=== PATIENT | male | born 1965 | race Caucasian/White ===

== ENCOUNTER 2020-04-10 09:27 | Day surgery (SDC) | payer BC ==
[~2020-04-10] VITALS: Ht 177.8 cm; Wt 94.8 kg
[2020-04-10] VITALS (10 sets, daily range): BP systolic 126–158; BP diastolic 74–96
[~2020-04-10 09:27] MED LIST: ceFAZolin sod 1 GM in NS 55 ML IVPB ONE
[2020-04-10] MEDS ORDERED: Betadine 10% Oint 30gm TOPIC ONE (11:47)
[2020-04-10] MEDS ORDERED: Kenalog-40 1ml Vial ONE (11:47)
[2020-04-10] MEDS ORDERED: Lidocaine 1%/ 10mg/ml/EPI 0.01mg/ml 20ml INJ ONE (11:48)
[2020-04-10] MEDS ORDERED: Oxymetazoline 0.05% Na Spray 30ml NASAL ONE (11:48)
[2020-04-10] MEDS ORDERED: Cocaine HCl 4% 4ml vial TOPIC ONE (12:12)
[2020-04-10] MEDS ORDERED: Lidocaine 1% Plain 30 ml INJ ONE ×2 (12:13→14:26)
--- NOTE | 2020-04-10 12:14 | Pre-Procedure Note/Attestation ---
Pre-Procedure Note/Attestation Complete Prior to Procedure Planned Procedure: not applicable Procedure Narrative: nasal obstruction unresponsive to medication Indications for Procedure Pre-Operative Diagnosis: septal deviation, bilateral hypertrophied inferior turbinates Attestation I attest that I discussed the nature of the procedure; its benefits; risks and complications; and alternatives (and the risks and benefits of such alternatives), prior to the procedure, with the patient (or the patient's legal apprenticeship training representative). I attest that, if there was a reasonable possibility of needing a blood transfusion, the patient (or the patient's legal apprenticeship training representative) was given the [facility] standardized written summary, pursuant to the [place] Blood Safety Act ([place] Health and Safety Code # 1645, as amended). I attest that I re-evaluated the patient just prior to the surgery and that there has been no change in the patient's H&P, except as documented below: Patrick Mcintyre MD Apr 10, 2020 12:14
--- NOTE | 2020-04-10 12:20 | Anethesia Preoperative Eval ---
Anesthesia Pre-op PMH/ROS General Date of Evaluation: Apr 10, 2020 Time of Evaluation: 12:37 Anesthesiologist: Jacques ASA Score: ASA 1 Mallampati Score Class I : Soft palate, uvula, fauces, pillars visible Class II: Soft palate, uvula, fauces visible Class III: Soft palate, base of uvula visible Class IV: Only hard plate visible Mallampati Classification: Class I Surgeon: Miguelina Diagnosis: Nasal Deformity Surgical Procedure: Septoplasty, Bilateral SMR Tubinates Anesthesia History: none Family History: no anesthesia problems Allergies: Coded Allergies: No Known Allergies (Unverified , 04/07/20) Medications: see eMAR Patient NPO?: Yes Anesthesia Pre-op Phys. Exam Physician Exam Last Vital Signs Date Time Temp Pulse Resp B/P (MAP) Pulse Ox O2 Delivery O2 Flow Rate FiO2 04/10/20 10:04 Room Air 04/10/20 10:04 98.0 59 18 126/86 96 Constitutional: NAD Neurologic: CN 2-12 intact Cardiovascular: RRR Respiratory: CTA Gastrointestinal: S/NT/ND Airway Exam Mallampati Score: Class I MO: full ROM: full Teeth: intact Anesthesia Pre-op A/P Risk Assessment & Plan Assessment: ASA 1 Plan: TIVA, SED, GlideScope Status Change Before Surgery: No Pre-Antibiotics Dru Grams Ancef IV Given Within 1 Hr of Incision: Yes Time Given: 13:01 Franky Hanna MD Apr 10, 2020 12:20
--- NOTE | 2020-04-10 12:21 | Immediate Post-Op Evaluation ---
Immediate Post-Op Evalulation Immediate Post-Op Evalulation Procedure: Septoplasty, Bilateral SMR Tubinates Date of Evaluation: Apr 10, 2020 Time of Evaluation: 15:18 IV Fluids: 800 LR Blood Products: 0 Estimated Blood Loss: 20 Urinary Output: 0 Blood Pressure Systolic: 152 Blood Pressure Diastolic: 90 Pulse Rate: 69 Respiratory Rate: 16 O2 Sat by Pulse Oximetry: 100 Temperature (Fahrenheit): 97 Pain Score (1-10): 2 Nausea: No Vomiting: No Complications 0 Patient Status: awake, reacts, patent, extubated, none Hydration Status: adequate Dru Grams Ancef IV Given Within 1 Hr of Incision: Yes Time Given: 13:01 Franky Hanna MD Apr 10, 2020 12:20
--- NOTE | 2020-04-10 12:21 | 48 Hour Post Anesthesia Eval ---
Post Anesthesia Evaluation Procedure: Septoplasty, Bilateral SMR Tubinates Date of Evaluation: Apr 10, 2020 Time of Evaluation: 17:23 Blood Pressure Systolic: 131 0: 83 Pulse Rate: 73 Respiratory Rate: 18 Temperature (Fahrenheit): 98 O2 Sat by Pulse Oximetry: 99 Airway: patent Nausea: No Vomiting: No Pain Intensity: 2 Hydration Status: adequate Cardiopulmonary Status: Stable Mental Status/LOC: patient returned to baseline Follow-up Care/Observations: 0 Post-Anesthesia Complications: 0 Follow-up care needed: ready to discharge Franky Hanna MD Apr 10, 2020 12:21
[2020-04-10] MEDS ORDERED: Lidocaine 1% MPF 10mg/ml 5ml ONE ×2 (12:28→13:40)
[2020-04-10] MEDS ORDERED: Sodium Chloride 10ml vial INJ ONE (12:28)
[2020-04-10] MEDS ORDERED: Meperidine 25mg/1ml Inj (FOR RIGORS ONLY) IV PRN (12:30)
[2020-04-10] MEDS ORDERED: Metoclopramide 10mg/2ml Inj IVP PRN (12:30)
[2020-04-10] MEDS ORDERED: Hydromorphone 0.5mg/0.5ml inj IVP PRN (12:30)
[2020-04-10] MEDS ORDERED: oxyCODONE HCL/Acetaminophen 5/325mg ORAL PRN (12:30)
[2020-04-10] MEDS ORDERED: HYDROcodone/Acetamin 5/325 tab ORAL PRN (12:30)
[2020-04-10] MEDS ORDERED: HYDROcodone/Acetamin 7.5/325 tab ORAL PRN (12:30)
[2020-04-10] MEDS ORDERED: Sterile Water Irrig 1000ml IRRIG ONE (12:30)
[2020-04-10] MEDS ORDERED: NS Irrig 1000ml ONE (12:30)
[2020-04-10] MEDS ORDERED: Ketorolac 30mg Inj IV PRN ×2 (12:30)
[2020-04-10] MEDS ORDERED: LR 1000ml 1,000 ML IVLG SCH (12:30)
[2020-04-10] MEDS ORDERED: Neostigmine 1mg/ml 10ml Inj ONE (12:30)
[2020-04-10] MEDS ORDERED: Midazolam 2mg/2ml Inj IVP PRN (12:30)
[2020-04-10] MEDS ORDERED: DiphenhydrAMINE 50mg/ml Inj IVP PRN (12:30)
[2020-04-10] MEDS ORDERED: LORazepam Inj 2mg/ml 1ml IV PRN (12:30)
[2020-04-10] MEDS ORDERED: Atropine Sulfate 0.4mg/ml inj IVP PRN (12:30)
[2020-04-10] MEDS ORDERED: Labetalol 5mg/ml 20ml vial IV PRN (12:30)
[2020-04-10] MEDS ORDERED: fentaNYL 100 mcg/2 mL IV PRN (12:30)
[2020-04-10] MEDS ORDERED: LR 1000ml ONE (12:30)
[2020-04-10] MEDS ORDERED: Acetaminophen (Non formulary) 100 ML IV ONE (12:30)
[2020-04-10] MEDS ORDERED: fentaNYL 100 mcg/2 mL IV ONE (12:31)
[2020-04-10] MEDS ORDERED: Glycopyrrolate 0.2mg/ml 1ml Vial ONE (14:33)
--- NOTE | 2020-04-10 14:59 | Brief Operative Note ---
Immediate Post Operative Note Operative Note Pre-op Diagnosis: septal deviation, bilateral hypertrophied inferior turbinates Procedure: septoplasty, bilateral inferior turbinectomies with intramural coagulation, repair of collapsed right internal valve Post-op Diagnosis: same as pre-op plus - collapsed right internal valve Surgeon: Patrick Mcintyre M.D. Anesthesiologist: Abdelrahman Davila Anesthesia: general Specimen: yes - septum Complications: none Condition: stable Fluids: ringers lactate Estimated Blood Loss: minimal Drains: none Implant(s) used?: No Patrick Mcintyre MD Apr 10, 2020 14:59
--- NOTE | 2020-04-11 00:44 | Operative Note - Dictated ---
DATE OF OPERATION: 04/10/2020 SURGEON: Patrick Mcintyre MD ANESTHESIOLOGIST: Dr. Hanna. PREOPERATIVE DIAGNOSES: 1. Septal deviation. 2. Bilateral hypertrophied inferior turbinates. POSTOPERATIVE DIAGNOSES: 1. Septal deviation. 2. Bilateral hypertrophied inferior turbinates. 3. Collapsed right external nasal valve. PROCEDURES: 1. Septoplasty. 2. Bilateral inferior turbinectomies with intramural coagulation. 3. Repair of collapsed right internal valve. ANESTHESIA: General. INDICATIONS FOR SURGERY: The patient is a 55-year-old male, who complains of right nasal airway obstruction, unresponsive to medication. FINDINGS AT SURGERY: Revealed the columella and septum were severely deviated to the right narrowing the right nasal inflow tract to approximately 15 to 20% of the left. Further examination revealed both inferior turbinates were significantly hypertrophied. DESCRIPTION OF SURGERY: The patient was brought to the operating room while premedicated and have received preoperative antibiotics. The patient was then placed in supine position on the operating room table. After the patient underwent satisfactory endotracheal intubation, he was given IV sedation. A time-out was performed. The nasal cavity was then sprayed with 0.25% Arnaldo-Synephrine. Sterile Q-tips saturated with Betadine were used to sterilize the intranasal cavity. Approximately 24 mL of 1% Xylocaine with 1:100,000 epinephrine were used to inject the nasal and septal frameworks. Less than 200 g of cocaine was used in intranasal packing. The patient was prepped and draped in usual sterile fashion. After a suitable period of time had lapse for vasoconstriction and anesthesia to take effect, the packing was removed from the nasal cavity. A 15 blade was used to make a right inferior septal incision. To make incision, the entire columella had to be pulled significantly inferior because the septum was butting up and pushing the columella and medial corinne far to the right. The right medical corinne was again retracted inferiorly and a right mucoperichondrial flap was eventually elevated. That portion of the septum, which was convex severely in the right nasal cavity was incised and stripped, from any attachments and removed from the field of operation. Bipolar intramural coagulation of both inferior turbinates was performed. An incision was made in the undersurface of both inferior turbinates and mucosa stripped the underlying bone. The inferior turbinates were then outfractured and small pieces of bone removed from the pocket. Re-examination still revealed that columella was severely deviated to the right. With the columella again pulled inferiorly the mucoperichondrium was elevated to the edge of the septum. The very inferior aspect of the septum was then freed from the soft tissue and a portion of the cartilage was removed. Re-examination still revealed that the very inferior part of the septum was still deviated to the right and thus pushed the columella to the right. The persistent deviated septum was cross hatched and mobilized into a more midline position for breathing. Re-examination now revealed the columella to be in a midline position and the patient had a good bilateral nasal airway. All blood was removed from nasal cavity with suction. A 4-0 plain was used to close the septal incision as well as to splint the septum. Betadine was secured over the incision site and procedure was terminated. The patient tolerated the procedure well and left the operating room in satisfactory condition. ESTIMATED BLOOD LOSS: 30 mL. COUNTS: Sponge and needle count were correct. Patrick Mcintyre M.D. DR: FELIPE JOB#: [id number] CC: CHRISTIE
== END 2020-04-10 09:28 | disposition home or self-care (01) ==
LOC: SUR 09:27
DX: J34.2 Deviated nasal septum (principal); J34.3 Hypertrophy of nasal turbinates; M95.0 Acquired deformity of nose
CPT/HCPCS: 30140; 30520; 30999; 94003; C9046; J0131; J0690; J1100; J2001; J2250; J2405; J2704; J2710; J3010; J7120; 94150